=== PATIENT | female | born 1955 ===

== ENCOUNTER 2018-01-07 06:45 | Day surgery (SDC) | payer OTHER ==
[~2018-01-07 06:45] MED LIST: CRESTOR40 MG PO; FLECAINIDE ACET50 MG PO; FOLIC ACI PO; HYZAAR 100-251 EACH PO; OSTERA TABLET1 EACH PO; SYNTHROID100 MCG PO; [UNRECOGNIZED DRUG - OTHER] PO
== END 2018-01-07 12:53 | disposition home or self-care (01) ==
LOC: CIR.AMB 06:45
DX: M53.82 Other specified dorsopathies, cervical region (principal); M47.892 Other spondylosis, cervical region